=== PATIENT | male | born 2000 | race Caucasian/White ===

== ENCOUNTER 2021-03-05 00:03 | Emergency (ER) | payer SELFPAY ==
[~2021-03-05] VITALS: Ht 167.6 cm; Wt 59.0 kg
[2021-03-05 00:03] VITALS: BP 129/70
[2021-03-05 00:15] VITALS: BP 129/70
--- NOTE | 2021-03-05 00:15 | NUR ---
PATIENT BIB [facility] DEPT. PATIENT EXAMINED BY DR. GALLO. PATIENT MEDICALLY CLEARED AND RELEASED IN CUSTODY IN STABLE CONDITION. ORIGINAL PRE-BOOK FORM GIVEN TO OFFICER PANCHO #[id number].
== END 2021-03-05 00:15 ==
LOC: MED 00:03
DX: F10.129 Alcohol abuse with intoxication, unspecified (principal); Z02.89 Encounter for other administrative examinations; V98.8XXA Other specified transport accidents, initial encounter; Y93.89 Activity, other specified; Y92.89 Other specified places as the place of occurrence of the external cause; Y99.8 Other external cause status; Y90.9 Presence of alcohol in blood, level not specified
CPT/HCPCS: 99283